=== PATIENT | male | born 1950 | race Hispanic/Latino ===

== ENCOUNTER → 2024-06-19 | Outpatient (REF) | payer MEDICARE | LOC: MRI 13:17 | PROVIDERS: ATTEND Family Medicine | DX: M79.604 Pain in right leg (principal) | CPT/HCPCS: 93926; 93971 ==

== ENCOUNTER → 2024-07-02 | Outpatient (REF) | payer MEDICARE | LOC: RAD 12:05 | PROVIDERS: ATTEND Family Medicine | DX: M25.561 Pain in right knee (principal) ==

== ENCOUNTER → 2024-07-27 | Outpatient (REF) | payer MEDICARE | LOC: CT 13:09 | PROVIDERS: ATTEND Family Medicine | DX: M25.561 Pain in right knee (principal); M17.11 Unilateral primary osteoarthritis, right knee ==